=== PATIENT | female | born 1990 | race Caucasian/White ===

== ENCOUNTER 2023-06-23 20:47 | Emergency (ER) | payer BC ==
[~2023-06-23] VITALS: Ht 160 cm; Wt 72.7 kg
[~2023-06-23 20:47] MED LIST: OMNICEF 300MG300 MG PO; VENTOLIN0.09 MG IH
[2023-06-23 20:52] VITALS: TEMP 98.4
[2023-06-23] MEDS ORDERED: CIPROFLOXACIN 0.3% OT ONE (22:30)
[2023-06-23] MEDS ORDERED: DEXAMETHASONE 0.1% OT ONE (22:30)
[2023-06-23 22:45] VITALS: BP 129/71; PULSE 80
== END 2023-06-23 22:45 | disposition home or self-care (01) ==
LOC: COL.ER 20:47
DX: H60.502 Unspecified acute noninfective otitis externa, left ear (principal); J11.1 Influenza due to unidentified influenza virus with other respiratory manifestations; J01.90 Acute sinusitis, unspecified

== ENCOUNTER 2023-06-25 21:19 | Inpatient (IN) | payer BC ==
[~2023-06-25] VITALS: Ht 160 cm; Wt 79.5 kg
[2023-06-25] MEDS ORDERED: Magnesium Sulfate 4% 50 ML IV ONE (22:00)
[2023-06-25] MEDS ORDERED: Albuterol/Ipratropium 3 MG-0.5 MG/3 ML Neb Soln IH ONE (22:00)
[2023-06-25] MEDS ORDERED: Ketorolac 30 MG/ML VIAL IV ONE (22:00)
[2023-06-25] MEDS ORDERED: NS 1,000 ML IV ONE (22:00)
[2023-06-25] MEDS ORDERED: diphenhydrAMINE 50 MG/ML 1 ML VIAL IV ONE (22:00)
[2023-06-25 22:15] LABS: BASO % 0.2 % (0.0-2.0); GRAN # 7.5 K/mm3 (1.4-6.5); GRAN % 80.5 % (42.2-75.2); HEMATOCRIT 40.9 % (37.0-47.0); HEMOGLOBIN 14.6 g/dl (12.5-16.0); LYMPH # 0.8 K/mm3 (1.2-3.4); MEAN CELL VOLUME 89 fl (80.0-100.0); MEAN CORPUSCULAR HEMOGLOBIN 32 pg (27-31); MEAN CORPUSCULAR HGB CONC 36 g/dl (33.0-37.0); MEAN PLATELET VOLUME 10.5 fl (7.4-10.4); MONO # 0.9 K/mm3 (0.1-0.6); PLATELET COUNT 150 K/mm3 (130-400); RED BLOOD COUNT 4.58 M/mm3 (4.10-5.30); REDCELL DISTRIBUTION WIDTH-CV 11.8 % (11.5-14.5)
[2023-06-25 22:23] LABS: ARTERIAL BLD GAS O2 SATURATION 89.1 % (92-100); ARTERIAL BLOOD GAS BASE EXCESS -2.7 (-2-2); ARTERIAL BLOOD GAS HCO3 18.3 meq/L (22-26); ARTERIAL BLOOD GAS PCO2 23.1 mmHg (35-45); ARTERIAL BLOOD GAS PO2 53.8 mmHg (80-100); ARTERIAL BLOOD GAS pH 7.52 (7.35-7.45)
[2023-06-25 22:47] LABS: INR 1.1 (0.8-3.0); PROTHROMBIN TIME 11.8 SECONDS (9.7-12.8)
[2023-06-25 22:58] LABS: ALBUMIN 3.2 gm/dL (3.5-5.0); BILIRUBIN,TOTAL 0.5 mg/dL (0.2-1.2); CALCIUM 8.6 mg/dL (8.4-10.2); CREATININE, serum 0.75 mg/dL (0.57-1.11); MAGNESIUM 1.8 mg/dL (1.6-2.6); POTASSIUM 3.7 mmol/L (3.5-4.5); TOTAL PROTEIN 6.5 gm/dL (6.2-8.1)
[2023-06-25] MEDS ORDERED: Azithromycin 500 MG in NS 250 ML IV ONE (23:00)
[2023-06-25] MEDS ORDERED: Iohexol 300 - 100 ML VIAL IV ONE (23:44)
[2023-06-26] VITALS (11 sets, daily range): BP systolic 104–125; BP diastolic 56–77; PULSE 78–133; TEMP 97.9–98.8
[2023-06-26 00:05] LABS: COLLECTION METHOD CLEAN CATCH
[2023-06-26 00:13] LABS: PH 5.5 (5.0-8.5); URINE APPEARANCE CLEAR (CLEAR/HAZY); URINE BLOOD NEGATIVE (NEGATIVE); URINE COLOR YELLOW (YELLOW); URINE GLUCOSE NEGATIVE (NEGATIVE); URINE KETONE NEGATIVE (NEGATIVE); URINE NITRATE NEGATIVE (NEGATIVE); URINE PROTEIN(semi-quant) NEGATIVE (NEGATIVE); URINE UROBILINOGEN 0.2 E.U/dL (0.2-1.0)
[2023-06-26] MEDS ORDERED: DEXAMETHASONE 0.1% OT SCH (00:21)
[2023-06-26] MEDS ORDERED: CIPROFLOXACIN 0.3% OT SCH (00:21)
[2023-06-26] MEDS ORDERED: Albuterol/Ipratropium 3 MG-0.5 MG/3 ML Neb Soln IH PRN (00:30)
[2023-06-26] MEDS ORDERED: Acetaminophen 325 MG TAB PO PRN (00:30)
[2023-06-26] MEDS ORDERED: Vancomycin 1.5 GM,Special Dose/Pharmacy Prepared 1.5 GM in NS 250 ML IV ONE (00:30)
[2023-06-26] MEDS ORDERED: Albuterol/Ipratropium 3 MG-0.5 MG/3 ML Neb Soln IH SCH (02:00)
[2023-06-26] MEDS ORDERED: MOTRIN 800800 MG/TAB PO (02:10)
[2023-06-26] MEDS ORDERED: DECADRON OPHTH D5 ML OT (02:12)
[2023-06-26] MEDS ORDERED: Melatonin 3 MG TAB PO SCH (02:45)
[2023-06-26] MEDS ORDERED: dexAMETHasone 10 MG/ML VIAL IV SCH (09:00)
[2023-06-27] VITALS (13 sets, daily range): BP systolic 69–126; BP diastolic 67–82; PULSE 103–130; TEMP 97.7–98.3
[2023-06-27 07:55] LABS: BASO % 0.2 % (0.0-2.0); GRAN # 9.3 K/mm3 (1.4-6.5); GRAN % 84.4 % (42.2-75.2); LYMPH # 0.9 K/mm3 (1.2-3.4); LYMPH % 7.7 % (20.0-51.0); MEAN CORPUSCULAR HGB CONC 34 g/dl (33.0-37.0); MEAN PLATELET VOLUME 9.7 fl (7.4-10.4); MONO # 0.8 K/mm3 (0.1-0.6); PLATELET COUNT 247 K/mm3 (130-400); RED BLOOD COUNT 3.51 M/mm3 (4.10-5.30); REDCELL DISTRIBUTION WIDTH-CV 11.7 % (11.5-14.5)
[2023-06-27 08:13] LABS: HEMATOCRIT 32.1 % (37.0-47.0); MEAN CORPUSCULAR HEMOGLOBIN 31 pg (27-31)
[2023-06-27 08:14] LABS: MEAN CELL VOLUME 92 fl (80.0-100.0)
[2023-06-27 08:15] LABS: ALBUMIN 2.8 gm/dL (3.5-5.0); BILIRUBIN,TOTAL 0.4 mg/dL (0.2-1.2); CALCIUM 9.2 mg/dL (8.4-10.2); CREATININE, serum 0.7 mg/dL (0.57-1.11); POTASSIUM 4.1 mmol/L (3.5-4.5); TOTAL PROTEIN 6.4 gm/dL (6.2-8.1)
[2023-06-27] MEDS ORDERED: dexAMETHasone 4 MG TAB PO SCH (09:00)
[2023-06-27] MEDS ORDERED: Vancomycin 1.25 GM,Special Dose/Pharmacy Prepared 1.25 GM in NS 250 ML IV SCH (12:30)
[2023-06-28] VITALS (12 sets, daily range): BP systolic 116–141; BP diastolic 72–88; PULSE 80–121; TEMP 97.7–98.4
[2023-06-28 05:45] LABS: MEAN CELL VOLUME 92 fl (80.0-100.0); MEAN CORPUSCULAR HEMOGLOBIN 32 pg (27-31); MEAN CORPUSCULAR HGB CONC 34 g/dl (33.0-37.0); MEAN PLATELET VOLUME 9.3 fl (7.4-10.4); PLATELET COUNT 337 K/mm3 (130-400); RED BLOOD COUNT 3.49 M/mm3 (4.10-5.30); REDCELL DISTRIBUTION WIDTH-CV 11.7 % (11.5-14.5)
[2023-06-28 06:11] LABS: ALBUMIN 2.9 gm/dL (3.5-5.0); BILIRUBIN,TOTAL 0.3 mg/dL (0.2-1.2); CALCIUM 9.1 mg/dL (8.4-10.2); CREATININE, serum 0.74 mg/dL (0.57-1.11); POTASSIUM 3.7 mmol/L (3.5-4.5); TOTAL PROTEIN 6.5 gm/dL (6.2-8.1)
[2023-06-28 06:40] LABS: BAND 3 % (0-10); LYMPHOCYTE 13 % (20.0-51.0); NEUTROPHILS 79 % (42.0-75.2); PLATELET ESTIMATE NORMAL (NORMAL)
[2023-06-29] VITALS (12 sets, daily range): BP systolic 120–135; BP diastolic 76–85; PULSE 79–125; TEMP 97.5–98.6
[2023-06-29 07:49] LABS: HEMOGLOBIN 11.1 g/dl (12.5-16.0); MEAN CELL VOLUME 91 fl (80.0-100.0); MEAN CORPUSCULAR HEMOGLOBIN 31 pg (27-31); MEAN CORPUSCULAR HGB CONC 35 g/dl (33.0-37.0); MEAN PLATELET VOLUME 8.9 fl (7.4-10.4); PLATELET COUNT 414 K/mm3 (130-400); RED BLOOD COUNT 3.53 M/mm3 (4.10-5.30); REDCELL DISTRIBUTION WIDTH-CV 11.8 % (11.5-14.5)
[2023-06-29 07:51] LABS: HEMATOCRIT 32.1 % (37.0-47.0)
[2023-06-29 08:01] LABS: ALBUMIN 2.9 gm/dL (3.5-5.0); BILIRUBIN,TOTAL 0.3 mg/dL (0.2-1.2); CALCIUM 9.3 mg/dL (8.4-10.2); CREATININE, serum 0.7 mg/dL (0.57-1.11); POTASSIUM 3.6 mmol/L (3.5-4.5); TOTAL PROTEIN 6.3 gm/dL (6.2-8.1)
[2023-06-29 08:31] LABS: BAND 3 % (0-10); LYMPHOCYTE 18 % (20.0-51.0); METAMYELOCYTE 4 % (0-0); NEUTROPHILS 70 % (42.0-75.2); PLATELET ESTIMATE INCREASED (NORMAL)
[2023-06-30 00:42] VITALS: BP_SYST 130
[2023-06-30 04:11] VITALS: BP 120/61; PULSE 124; TEMP 97.6
[2023-06-30 05:00] VITALS: BP_SYST 122
[2023-06-30 07:07] VITALS: BP 122/74; PULSE 96; TEMP 97.6
[2023-06-30] MEDS ORDERED: MEDROL 4MG DOSPA4 MG PO (07:57)
[2023-06-30 09:00] VITALS: BP_SYST 122
[2023-06-30] MEDS ORDERED: AMOXICILLIN 8751 TAB PO (09:03)
[2023-06-30] MEDS ORDERED: PROAIR HFA0.09 MG/AC IH (09:04)
[2023-06-30] MEDS ORDERED: CIPRODEX OT (09:08)
[2023-06-30 11:05] VITALS: BP 138/87; PULSE 94; TEMP 98.1
== END 2023-06-30 12:45 | disposition home or self-care (01) | DRG 871 ==
LOC: COL.ER 21:19 → MEDICAL 06-26 00:46
PROVIDERS: Internal Medicine; Nurse Practitioner Family; ADMIT Internal Medicine
DX: A41.9 Sepsis, unspecified organism (principal); J10.08 Influenza due to other identified influenza virus with other specified pneumonia; J96.01 Acute respiratory failure with hypoxia; E87.20 Acidosis, unspecified; Z20.822 Contact with and (suspected) exposure to COVID-19; G43.909 Migraine, unspecified, not intractable, without status migrainosus; F90.9 Attention-deficit hyperactivity disorder, unspecified type; J45.909 Unspecified asthma, uncomplicated; F32.A Depression, unspecified; H60.90 Unspecified otitis externa, unspecified ear; H53.149 Visual discomfort, unspecified; D64.9 Anemia, unspecified; R74.01 Elevation of levels of liver transaminase levels; F41.9 Anxiety disorder, unspecified; K80.20 Calculus of gallbladder without cholecystitis without obstruction; J01.90 Acute sinusitis, unspecified; Z79.899 Other long term (current) drug therapy; Z87.891 Personal history of nicotine dependence; Z23 Encounter for immunization
CPT/HCPCS: J0456; J1100; J1200; J1885; J2543; J2765; J3370; J3475; J7030; J7050; J8540; Q9967